=== PATIENT | male | born 1995 | race American Indian/Alaskan Native ===

== ENCOUNTER 2017-03-23 19:44 | Emergency (ER) | payer SELFPAY ==
[2017-03-23 19:58] VITALS: BP 135/92
[2017-03-23 20:36] LABS: Bilirubin,Urine NEG (Negative); Blood,Urine NEG (Negative); Ketones,Urine NEG (Negative); Leukocyte Esterase,Urine NEG (Negative); Mucus,Urine 1+ /HPF; Nitrite,Urine NEG (Negative); Protein,Urine <15 mg/dL mg/dL (Negative)
--- NOTE | 2017-03-23 21:56 | Emergency Department Report ---
ED Male HPI - General Chief complaint: Urogenital-Male Stated complaint: PENILE RASH Time Seen by Provider: 03/23/17 21:24 Source: patient Mode of arrival: Ambulatory Limitations: No Limitations - History of Present Illness Initial comments: 21-year-old male significant past medical history presents with complaint of skin bumps on his penis for over one year. Denies any itching, pain, nausea, abd pain, dysuria, discharge, no hematuria no testicular pain no testicle swelling or rectal pain. Denies any history of STDs. States he is occasionally sexually active without protection. Denies any fevers or chills denies any inguinal adenopathy. States that bumps are painless and small near the base of his penis and on foreskin. Onset/Timin -: year(s) Location: penis - Related Data Allergies Allergy/AdvReac Type Severity Reaction Status Date / Time No Known Allergies Allergy Unverified 03/23/17 19:51 ED Review of Systems ROS: Stated complaint: PENILE RASH Other details as noted in HPI Constitutional: denies: chills, fever Eyes: denies: eye pain, eye discharge, vision change ENT: denies: ear pain, throat pain Respiratory: denies: cough, shortness of breath, wheezing Cardiovascular: denies: chest pain, palpitations Endocrine: no symptoms reported Gastrointestinal: denies: abdominal pain, nausea, diarrhea Genitourinary: as per HPI. denies: urgency, dysuria Musculoskeletal: denies: back pain, joint swelling, arthralgia Skin: denies: rash, lesions Neurological: denies: headache, weakness, paresthesias Psychiatric: denies: anxiety, depression Hematological/Lymphatic: denies: easy bleeding, easy bruising ED Past Medical Hx - Past Medical History Previous Medical History?: No - Social History Smoking Status: Current Every Day Smoker ED Physical Exam - General Limitations: No Limitations General appearance: alert, in no apparent distress - Head Head exam: Present: atraumatic, normocephalic - Eye Eye exam: Present: normal appearance, PERRL, EOMI - ENT ENT exam: Present: mucous membranes moist - Neck Neck exam: Present: normal inspection - Respiratory Respiratory exam: Present: normal lung sounds bilaterally. Absent: respiratory distress - Cardiovascular Cardiovascular Exam: Present: regular rate, normal rhythm. Absent: systolic murmur, diastolic murmur, rubs, gallop - GI/Abdominal GI/Abdominal exam: Present: soft, normal bowel sounds - Rectal Rectal exam: Present: deferred - exam: Present: normal inspection External exam: Present: normal external exam (no warts, no penile discharge, no sores. small sebaceous glands on foreskin. no paraphimosis, no phimosis) - Expanded Exam Expanded exam: Cremasteric Reflex Present: Left, Right - Extremities Exam Extremities exam: Present: normal inspection - Back Exam Back exam: Present: normal inspection - Neurological Exam Neurological exam: Present: alert, oriented X3, CN II-XII intact, normal gait - Psychiatric Psychiatric exam: Present: normal affect, normal mood - Skin Skin exam: Present: warm, dry, intact, normal color. Absent: rash ED Course Vital Signs 03/23/17 19:52 Temperature 98.4 F Pulse Rate 86 Respiratory 18 Rate Blood Pressure 135/92 O2 Sat by Pulse 98 Oximetry ED Medical Decision Making - Medical Decision Making A/P: [place] spots 1-no evidence of genital warts no signs or clinical symptoms of urethritis and no penile discharge no testicular pain no testicular swelling negative tenderness on palpation of the scrotum 2-patient has small 1-2 mm raised bumps inside of penis consistent with michele spots which are a benign physiological skin lesion 3-patient provided with dermatology follow-up and primary care follow 4- advised on safe sex practices to prevent requiring STDs Critical care attestation.: If time is entered above; I have spent that time in minutes in the direct care of this critically ill patient, excluding procedure time. ED Disposition Clinical Impression: Michele spots Disposition: - TO HOME OR SELFCARE Is pt being admited?: No Does the pt Need Aspirin: No Condition: Stable Instructions: Safe Sex (ED) Additional Instructions: [email or web address] Referrals: [facility] [Outside] - 3-5 Days [facility] [Outside] - 3-5 Days VIRAL GAMING MD [Staff Physician] - 3-5 Days [facility] [Provider Group] - 3-5 Days Forms: Work/School Release Form(ED) Time of Disposition: 21:53
== END 2017-03-23 22:07 | disposition home or self-care (01) ==
LOC: ED 19:44
DX: Q38.6 Other congenital malformations of mouth (principal); N48.89 Other specified disorders of penis; F17.210 Nicotine dependence, cigarettes, uncomplicated
CPT/HCPCS: 81001; 87591; 99283